=== PATIENT | female | born 1985 | race Hispanic/Latino ===

== ENCOUNTER 2017-10-15 14:00 | Emergency (ER) | payer MEDICAID, OTHER ==
[2017-10-15 15:46] LABS: #Basophils 0.1 thou/uL (0.0-0.2); #Eosinphils 0.1 thou/uL (0.0-0.7); #Lymphocytes 2.7 thou/uL (1.20-3.40); #Monocytes 0.8 thou/uL (0.11-0.59); #Neutrophils 8.7 thou/uL (1.40-6.50); %Basophils 0.7 % (0.0-1.0); %Eosinophils 0.7 % (0.0-10.0); %Lymphocytes 21.5 % (21.0-51.0); %Monocytes 6.7 % (0.0-10.0); Hematocrit 48.3 % (36.0-47.0); Red Blood Cell (RBC) Count 5.15 mill/uL (4.20-5.40); White Blood Cell (WBC) Count 12.3 thou/uL (4.8-10.8)
[2017-10-15 16:02] LABS: ALT (SGPT) 66 U/L (8-55); AST (SGOT) 37 U/L (5-34); Alkaline Phosphatase 78 U/L (40-150); Anion Gap 12 mmol/L (10-20); BUN (Urea Nitrogen) 7 mg/dL (7.0-18.7); Bilirubin, Total 0.3 mg/dL (0.2-1.2); Calc. Creatinine Clearance 0 mL/min (70-130); Calcium 9.3 mg/dL (7.8-10.44); Carbon Dioxide 26 mmol/L (22-29); Chloride 101 mmol/L (98-107); Estimated GFR-MDRD 89; Globulin 3.6 g/dL (2.4-3.5); Protein, Total 7.6 g/dL (6.0-8.3)
[2017-10-15 16:05] LABS: Bilirubin Negative (Negative); Blood, Urine Large (Negative); Glucose, Urine (Dipstick) Negative (Negative); Ketone, Urine Negative (Negative); Nitrite Negative (Negative); Protein, Urine (Dipstick) Negative (Neg-Trace); Urobilinogen 0.2 mg/dL (0.2-1.0)
[2017-10-15 16:07] LABS: Hyaline Casts/LPF 0-3 HYALINE CAST LPF (0-3 Hyaline); Squamous Epithelial 0-3 HPF (0-3); WBC/HPF 0-3 HPF (0-3)
[2017-10-15 16:22] LABS: Bacteria/HPF 1+ HPF (None Seen); Yeast-All Forms None Seen HPF (None Seen)
== END 2017-10-15 16:25 | disposition home or self-care (01) ==
LOC: ERS 14:00
DX: K29.70 Gastritis, unspecified, without bleeding (principal); F17.210 Nicotine dependence, cigarettes, uncomplicated; Z79.899 Other long term (current) drug therapy
CPT/HCPCS: 36415; 80053; 81003; 81015; 85025; 99406

== ENCOUNTER 2018-01-22 08:41 | Outpatient (CLI) | payer OTHER | END 2018-01-22 08:42 | disposition home or self-care (01) | LOC: BICMAMMO 08:41 | DX: N63.24 Unspecified lump in the left breast, lower inner quadrant (principal) ==

== ENCOUNTER 2018-04-22 09:39 | Outpatient (CLI) | payer OTHER | END 2018-04-22 09:40 | disposition home or self-care (01) | LOC: BICRAD 09:39 | PROVIDERS: ATTEND Internal Medicine | DX: S33.5XXD Sprain of ligaments of lumbar spine, subsequent encounter (principal); M47.896 Other spondylosis, lumbar region | CPT/HCPCS: 72100 ==

== ENCOUNTER 2019-03-16 10:29 | Outpatient (CLI) | payer OTHER ==
--- NOTE | 2019-03-16 11:23 | RAD ---
Lumbar spine: 3 views HISTORY: Back pain. Vertebral bodies maintain normal height and alignment. Disc spaces are normally maintained. No signif icant degenerative change. No evidence of spondylolisthesis. IMPRESSION: Unremarkable lumbar spine
== END 2019-03-16 10:30 | disposition home or self-care (01) ==
LOC: SCSRAD 10:29
PROVIDERS: ATTEND Psychiatry & Neurology Neurology
DX: M54.5 Low back pain (principal)
CPT/HCPCS: 72100

== ENCOUNTER 2021-02-20 21:19 | Emergency (ER) | payer OTHER, SELFPAY ==
[2021-02-20 22:09] LABS: #Basophils 0.1 thou/uL (0.0-0.2); #Eosinphils 0.2 thou/uL (0.0-0.7); #Lymphocytes 5.3 thou/uL (1.20-3.40); #Monocytes 0.7 thou/uL (0.11-0.59); #Neutrophils 8.4 thou/uL (1.40-6.50); %Basophils 0.9 % (0.0-1.0); %Eosinophils 1.5 % (0.0-10.0); %Monocytes 4.8 % (0.0-10.0); %Neutrophils 56.8 % (42.0-75.0); Hemoglobin 15.6 g/dL (12.0-16.0); Mean Corpuscular HGB CONC 33.1 g/dL (32.0-36.0); Mean Corpuscular Hemoglobin 30.4 pg (27.0-31.0); Mean Corpuscular Volume 91.7 fL (78.0-98.0); Mean Platelet Volume 7.1 fL (7.4-10.4); Platelet Count 326 thou/uL (130-400); RBC Distribution Width 12.3 % (11.5-14.5); Red Blood Cell (RBC) Count 5.13 mill/uL (4.20-5.40); White Blood Cell (WBC) Count 14.8 thou/uL (4.8-10.8)
[2021-02-20 22:29] LABS: ALT (SGPT) 40 U/L (8-55); AST (SGOT) 22 U/L (5-34); Albumin 4.1 g/dL (3.5-5.0); Alkaline Phosphatase 98 U/L (40-110); Anion Gap 9 mmol/L (10-20); BUN (Urea Nitrogen) 12 mg/dL (7.0-18.7); Bilirubin, Total 0.2 mg/dL (0.2-1.2); Calc. Creatinine Clearance 0 mL/min (70-130); Calcium 9.1 mg/dL (7.8-10.44); Carbon Dioxide 27 mmol/L (22-29); Chloride 103 mmol/L (98-107); Globulin 3.3 g/dL (2.4-3.5); Glucose 124 mg/dL (70-105); Lipase 15 U/L (8-78); Potassium 3.8 mmol/L (3.5-5.1); Protein, Total 7.4 g/dL (6.0-8.3); Sodium 135 mmol/L (136-145)
[2021-02-20] MEDS ORDERED: Acetaminophen 500 MG TAB ONE (23:09)
== END 2021-02-21 00:36 | disposition home or self-care (01) ==
LOC: ERS 21:19
DX: R07.9 Chest pain, unspecified (principal); D72.829 Elevated white blood cell count, unspecified; R73.9 Hyperglycemia, unspecified; F17.210 Nicotine dependence, cigarettes, uncomplicated
CPT/HCPCS: 36415; 71045; 80053; 83690; 84484; 85025; 93005

== ENCOUNTER 2025-09-06 07:39 | Outpatient (CLI) | payer OTHER | END 2025-09-06 07:40 | disposition home or self-care (01) | LOC: BICRAD 07:39 | PROVIDERS: ATTEND Nurse Practitioner Family | DX: M79.672 Pain in left foot (principal) ==

== ENCOUNTER 2025-10-08 17:44 | Emergency (ER) | payer OTHER ==
[2025-10-08 18:14] LABS: #Basophils 0.05 10x3/uL (0.0-0.2); #Eosinophils 0.08 10x3/uL (0.0-0.7); #Monocytes 0.64 10x3/uL (0.11-0.59); #Neutrophils 7.68 10x3/uL (1.40-6.50); %Basophils 0.4 % (0.0-1.0); %Eosinophils 0.7 % (0.0-10.0); %Lymphocytes 25.3 % (21.0-51.0); %Monocytes 5.6 % (0.0-10.0); %Neutrophils 67.6 % (42.0-75.0); Hematocrit 43.2 % (36.0-47.0); Hemoglobin 14.1 g/dL (12.0-16.0); Mean Corpuscular Hemoglobin 27.9 pg (27.0-31.0); Mean Corpuscular Volume 85.4 fL (78.0-98.0); Platelet Count 350 10x3/uL (130-400); Red Blood Cell (RBC) Count 5.06 mill/uL (4.20-5.40); White Blood Cell (WBC) Count 11.37 10x3/uL (4.8-10.8)
[2025-10-08 18:32] LABS: ALT (SGPT) 54 U/L (Less than 34); AST (SGOT) 33 U/L (11-34); Albumin 4.1 g/dL (3.1-4.5); Alkaline Phosphatase 80 U/L (40-110); Anion Gap 14 mmol/L (10-20); BUN (Urea Nitrogen) 14 mg/dL (7.0-18.7); Bilirubin, Total 0.3 mg/dL (0.3-1.2); Calc. Creatinine Clearance 0 mL/min (70-130); Calcium 9.5 mg/dL (7.8-10.44); Carbon Dioxide 24 mmol/L (22-29); Chloride 106 mmol/L (98-107); Globulin 3.5 g/dL (2.4-3.5); Glucose 134 mg/dL (70-105); Potassium 4.0 mmol/L (3.5-5.1); Sodium 140 mmol/L (136-145)
[2025-10-08 18:36] LABS: INR-International Normal Ratio 1.0; Prothrombin Time 13.4 sec (12.0-14.7)
[2025-10-08 18:37] LABS: PTT 31.7 sec (22.9-36.1)
[2025-10-08 18:39] LABS: BHCG - Serum Negative (NEGATIVE); Pregs Control Background? CLEAR/WHITE (CLR/WHITE); Pregs Control Bar Appear? YES (CONTROL BAR)
[2025-10-08 18:49] LABS: Magnesium 2.1 mg/dL (1.6-2.6)
== END 2025-10-08 20:42 | disposition home or self-care (01) ==
LOC: ERS 17:44
DX: R20.2 Paresthesia of skin (principal); M62.838 Other muscle spasm; F17.290 Nicotine dependence, other tobacco product, uncomplicated
CPT/HCPCS: 70450; 71045; 80053; 83735; 84484; 84703; 85025; 85610; 85730; 93005